=== PATIENT | male | born 1940 | race Caucasian/White ===

== ENCOUNTER 2016-07-17 14:48 | Emergency (ER) | payer OTHER, MEDICARE ==
[~2016-07-17] VITALS: Ht 177.8 cm; Wt 97.5 kg
--- NOTE | 2016-07-17 15:25 | RADIOLOGY REPORT ---
EXAMINATION: XR CHEST CLINICAL INFORMATION: Productive cough. COMPARISON: None. TECHNIQUE: PA and lateral views of the chest were obtained. FINDINGS: Lungs are clear. No pulmonary vascular congestion. No infiltrate or pleural effusion. The heart size is normal. The cardiac and mediastinal contours are normal. There are multilevel degenerative changes of dorsal spine. IMPRESSION: Unremarkable examination.
[2016-07-17 15:34] LABS: ABSOLUTE BASOPHIL COUNT 0 /CUMM (0.0-0.2); ABSOLUTE EOSINOPHIL COUNT 0.2 /CUMM (0.0-0.7); ABSOLUTE GRANULOCYTE CT 4.3 /CUMM (1.4-6.5); ABSOLUTE LYMPH COUNT 1.7 /CUMM (1.2-3.4); BASOPHIL % 0.5 % (0.0-2.0); EOSINOPHIL % 2.4 % (0-5); HEMATOCRIT 43.7 % (42-52); MEAN CORPUSCULAR HGB 29.3 PG (27.0-31.0); MEAN CORPUSCULAR VOLUME 86.2 FL (80.0-94.0); MEAN PLATELET VOLUME 7.7 FL (7.4-10.4); PLATELET COUNT 272 /CUMM (130-400); RBC DISTRIBUTION WIDTH 14.2 % (11.5-14.5); RED BLOOD CELL CT 5.06 /CUMM (4.70-6.10); WHITE BLOOD CELL COUNT 7.2 /CUMM (4.8-10.8)
--- NOTE | 2016-07-17 16:40 | ED CARDIAC/CP/PALPITATIONS ---
History of Present Illness General Chief Complaint: Chest Pain Stated Complaint: SENT IN BY PCP CHEST PAIN AND COUGH Source: patient, old records Exam Limitations: no limitations Vital Signs & Intake/Output Vital Signs & Intake/Output Vital Signs Date Time Temp Pulse Resp B/P Pulse O2 O2 Flow FiO2 Ox Delivery Rate 07/17 1713 98.6 82 18 144/78 98 Room Air Room Air 07/17 1459 98.3 85 20 160/81 97 Room Air Allergies Coded Allergies: No Known Allergies (07/17/16) Triage Note: PT C/O TIGHTNESS IN BACK AND PRODUCTIVE COUGH SINCE THURSDAY. PT STATES NO CP, PT DENIES SOB. SIB DR FONESCA FOR W/U Triage Nurses Notes Reviewed? yes Onset: Gradual Duration: day(s): (3), intermittent Timing: recent history Quality/Severity: mild, moderate, aching Location: back Radiation: no radiation Activities at Onset: none Prior Chest Pain/Card Workup: no prior chest pain Nitro Today/Relief: no nitro taken today Aspirin Today: no aspirin today Associated Symptoms: cough HPI: 75-year-old male presents to emergency room complaining of upper back pain which she attributes secondary to a nonproductive cough which she's had for the past 3 days. He denies any chest pain shortness of breath hemoptysis fever chills no recent travel or sick contacts he denies any abdominal pain nausea vomiting or diarrhea he is not taken anything for his symptoms. He does not smoke no history of asthma or COPD. There are no modifying factors or associated symptoms otherwise. No recent trauma or known injury. Pain is intermittent in nature aching 3 out of 10 (DIONE BAIRD) Past History Travel History Traveled to [place] past 21 day No Medical History Any Pertinent Medical History? see below for history Cardiovascular: hyperlipidemia Musculoskeletal: osteoarthritis Surgical History Surgical History: none Psychosocial History What is your primary language Nauruan Tobacco Use: Never used ETOH Use: occasional use Illicit Drug Use: denies illicit drug use Family History Hx Contributory? No (DIONE BAIRD) Review of Systems Review of Systems Constitutional: Reports: see HPI. All Other Systems: Reviewed and Negative Comments Review of systems: See HPI, All other systems negative. Constitutional, no chills no fever, no malaise HEENT: No visual changes no sore throat no congestion, Cardiovascular: No chest pain , no palpitation Skin, no rashes, no change in skin Respiratory: No dyspnea cough no sputum GI: No nausea no vomiting, no diarrhea, : No dysuria Muscle skeletal: No joint pain, no back pain, no neck pain, Neurologic: No numbness no headache Psych: No stress Heme/endocrine: No bruising no bleeding Immunology: No lymphadenopathy (DIONE BAIRD) Physical Exam Physical Exam General Appearance: well developed/nourished, no apparent distress, alert, awake , comfortable Cardiovascular: regular rate/rhythm Comments: Well-developed well-nourished person in no acute distress HEENT: Normal EENT exam; PERRL, EOMI, no nystagmus. HEAD is atraumatic. moist mucous membranes. Neck: Supple, no lymphadenopathy, normal range of motion Back: Nontender, no CVA tenderness. Full range of motion Cardiovascular: Regular rate and rhythms no murmurs rubs Respiratory: Chest is nontender No respiratory distress. Patient speaking in full complete sentences. Breath sounds clear to auscultation bilaterally: NO W/R /R Abdomen: Soft, nontender nondistended, no appreciable organomegaly. Extremity: No edema, full range of motion of extremities, Neuro: Alert oriented x3, motor sensory normal,. There were no obvious focal neurologic abnormalities. Skin: No appreciable rash on exposed skin, skin is warm and dry. Psych: Mood and affect is normal, memory and judgment is normal. Core Measures ACS in differential dx? Yes Severe Sepsis Present: No Septic Shock Present: No (DIONE BAIRD) Progress Differential Diagnosis: AMI, CHF/pulm edema, musculoskeletal pain, myocarditis, pericarditis, pneumonia, pneumothorax, pulmonary embolism, unstable angina Plan of Care: Orders Procedure Date/time Status TROPONIN LEVEL 07/17 1501 Complete COMPREHENSIVE METABOLIC PANEL 07/17 1501 Complete CBC WITHOUT DIFFERENTIAL 07/17 1501 Complete EKG 07/17 1450 Active Laboratory Tests 07/17/16 1517: Anion Gap 13, Estimated GFR > 60, BUN/Creatinine Ratio 20.0, Glucose 87, Calcium 10.4 H, Total Bilirubin 0.5, AST 28, ALT 30, Alkaline Phosphatase 62, Troponin I < 0.01, Total Protein 7.9, Albumin 4.7, Globulin 3.2, Albumin/Globulin Ratio 1.5, CBC w Diff NO MAN DIFF REQ, RBC 5.06, MCV 86.2, MCH 29.3, RDW 14.2, MPV 7.7 , Gran % 60.0, Lymphocytes % 23.6, Monocytes % 13.5 H, Eosinophils % 2.4, Basophils % 0.5, Absolute Granulocytes 4.3, Absolute Lymphocytes 1.7, Absolute Monocytes 1.0 H, Absolute Eosinophils 0.2, Absolute Basophils 0, PUBS MCHC 34.0 Labs ordered chest x-ray ordered. Old records reviewed. Patient clinically appears well discussed with him at length all of his lab results x-ray findings. There's been no hemoptysis no shortness of breath he has not had any episodes of coughing here discussed with him Tylenol Motrin as needed follow-up with his primary care physician return with any concerns answered all his questions he feels cold splint (DIONE BAIRD) Diagnostic Imaging: Viewed by Me: Radiology Read. Discussed w/RAD: Radiology Read. Radiology Impression: PATIENT: CHAR FIELDS PRESENT AGE: 75 PATIENT ACCOUNT NO: [id number] : 41 LOCATION: ER ORDERING PHYSICIAN: CHRISTY MARISCAL DO (TBS) SERVICE DATE: 07/17/16 EXAM TYPE: RAD - XRY-CHEST XRAY, PA AND LATERAL EXAMINATION: XR CHEST CLINICAL INFORMATION: Productive cough. COMPARISON: None. TECHNIQUE: PA and lateral views of the chest were obtained. FINDINGS: Lungs are clear. No pulmonary vascular congestion. No infiltrate or pleural effusion. The heart size is normal. The cardiac and mediastinal contours are normal. There are multilevel degenerative changes of dorsal spine. IMPRESSION: Unremarkable examination. DICTATED BY: STANLEY AVENDANO MD DATE/TIME DICTATED:07/17/161519 ASSEMBLY LINE BRAZER:JASPER DATE/TIME TRANSCRIBED:07/17/161519 CONFIDENTIAL, DO NOT COPY WITHOUT APPROPRIATE AUTHORIZATION. <Electronically signed in Other Vendor System> SIGNED BY: STANLEY AVENDANO MD 07/17/16 7983 Initial ED EKG: NSR AT 80, NO ACUTE ST SEG CHANGES, NORMAL AXIS (DIONE BAIRD) Departure Departure Time of Disposition: 1711 Disposition: HOME OR SELF CARE Condition: Stable Clinical Impression Primary Impression: Back strain Secondary Impressions: Bronchitis Referrals: TAMIKO PEREZ MD (PCP/Family) Additional Instructions: Tylenol or Motrin as needed for your pain follow-up with your primary care physician and return with any concerns Departure Forms: Customer Survey General Discharge Information (DIONE BAIRD) PA/LAND CLEARER Co-Sign Statement Statement: ED Attending supervision documentation- [x] I saw and evaluated the patient. I have also reviewed all the pertinent lab results and diagnostic results. I agree with the findings and the plan of care as documented in the PA's/LAND CLEARER's documentation. [x] I have reviewed the ED Record and agree with the PA's/LAND CLEARER's documentation. [] Additions or exceptions (if any) to the PAs/LAND CLEARER's note and plan are summarized below: [] (RAUDEL FINLEY,ILDEFONSO) Critical Care Note Critical Care Note Critical Care Time: non-applicable (DIONE BAIRD)
[2016-07-17 17:13] VITALS: BP 144/78
== END 2016-07-17 17:18 ==
LOC: ERH 14:48
PROVIDERS: Emergency Medicine
DX: J40 Bronchitis, not specified as acute or chronic (principal); S29.012A Strain of muscle and tendon of back wall of thorax, initial encounter
CPT/HCPCS: 93005; 93010